=== PATIENT | male | born 1970 | race African-American/Black ===

== ENCOUNTER 2016-08-24 11:02 | Inpatient (IN) | payer OTHER ==
[~2016-08-24] VITALS: Ht 193 cm; Wt 146.5 kg
--- NOTE | ~2016-08-24 | EKG ---
[address] [place] [address] ELECTROCARDIOGRAM REPORT Name: JACE ZHANG Room #: 448-P [facility] M..#: [id number] Admission: 08/24/16 Attend Phys: Suma Maldonado Discharge: Date of : 68 Report #: [id number] THIS REPORT FOR: //name// [facility] ED Test Date: 2016-08-24 Test Time: 12:52:51 Pat Name: JACE ZHANG Department: Room: [facility] Gender: M [employer] Supervisor: rigoberto : 1970 Requested By: Dio Kilgore Order Number: [id number] MD: Fahad Vazquez Measurements Intervals [place] Rate: 88 P: 16 FL: 162 QRS: -29 QRSD: 117 T: -6 QT: 429 QTc: 519 Interpretive Statements Sinus rhythm Atrial premature complex Probable left ventricular hypertrophy No previous ECG available for comparison Electronically Signed On 08-24-2016 15:47:19 ORTHODONTIC TECHNICIAN ASSISTANT by Fahad Vazquez [email or web address] <ELECTRONICALLY SIGNED> By: Fahad Vazquez MD 08/24/16 1547 1252 51 Fahad Vazquez MD /[place]
--- NOTE | ~2016-08-24 | 2DMMODE ---
[place] [address] 2 D/M-MODE ECHOCARDIOGRAM Name: JACE ZHANG Room #: 448-P [facility] [place] M.R.#: [id number] Admission: 08/24/16 Attend Phys: Suma Sherman Discharge: Date of : 68 Date of Service: 08/25/16 0811 Report #: [id number] THIS REPORT FOR: //name// Transthoracic Echocardiography Ordering physician: Suma Maldonado Referring physician: Suma Maldonado Wellness Assistant: LLOYD Coronado Indications/History: SOA. BP: 143 / HR: 86bpm Height: 75in Weight: 323lb 83 Study data: M-mode, complete 2D, complete spectral Doppler, and color Doppler. Location: Echo laboratory. Routine. Image quality was good. 2D measurements Normal Normal LVID ED 36-57 IVS ED 6-11 LVID ES 23-40 LVPW ED 6-11 LA volume index 39ml/m2 16-28 AoRoot diam ED 21-37 LVOT diameter 27mm 18-23 Findings: Left ventricle: The cavity size was at the upper limits of normal. Wall thickness was normal. Systolic function was normal. The estimated ejection fraction was in the range of 50% to 55%. Wall motion was normal. Right ventricle: The cavity size was at the upper limits of normal. Systolic function was normal. Right atrium: The atrium was mildly dilated. Left atrium: The atrium was mildly dilated. Volume index: 39ml/m2 (S). Aortic valve: Structurally normal valve. Trileaflet. Doppler: There was no stenosis. No regurgitation. Mitral valve: Structurally normal valve. Doppler: There was no evidence for stenosis. No regurgitation. [address] [address] 2 D/M-MODE ECHOCARDIOGRAM Name: JACE ZHANG [facility] Room #: [address] [place] [address] [place] M.R.#: [id number] Admission: 08/24/16 Attend Phys: Suma Sherman Discharge: Date of : 68 Date of Service: 08/25/16 0811 Report #: [id number] Tricuspid valve: Structurally normal valve. Doppler: There was no evidence for stenosis. No regurgitation. Pulmonic valve: Structurally normal valve. Doppler: There was no evidence for stenosis. No regurgitation. Pericardium: There was no pericardial effusion. Aorta: Aortic root: The aortic root was normal in size. Pulmonary artery: Pressure could not be reliably determined due to minimal or absent tricuspid insufficiency jet, but pulmonary hypertension was not suggested. Diastolic function: Normal diastolic function. Systemic veins: Inferior vena cava: Not well visualized. Conclusions 1. Left ventricle: Systolic function was normal. The estimated ejection fraction was in the range of 50% to 55%. Wall motion was normal. Normal diastolic function. 2. Aortic valve: Structurally normal valve. Trileaflet. There was no stenosis. No regurgitation. 3. Mitral valve: Structurally normal valve. No regurgitation. 4. Pericardium, extracardiac: There was no pericardial effusion. <ELECTRONICALLY SIGNED> By: Ed Leon MD, [facility] 08/25/16 1008 0811 1008 Ed Leon MD, [facility] /joana
--- NOTE | ~2016-08-24 | EKG ---
[address] [address] ELECTROCARDIOGRAM REPORT Name: JACE ZHANG Room #: 448-P [facility] M..#: [id number] Admission: 08/24/16 Attend Phys: Suma Maldonado Discharge: Date of : 68 Report #: [id number] THIS REPORT FOR: //name// [facility] Test Date: 2016-08-25 Test Time: 07:24:24 Pat Name: JACE ZHANG Department: Room: 448 P Gender: M Allocation Analyst: allen : 1970 Requested By: Suma Maldonado Order Number: [id number] MD: Fahad Vazquez Measurements Intervals [place] Rate: 70 P: 13 [place]: 162 QRS: -26 QRSD: 109 T: 7 QT: 430 QTc: 464 Interpretive Statements Sinus rhythm Left ventricular hypertrophy Compared to ECG 08/24/2016 12:52:51 Atrial premature complex(es) no longer present Electronically Signed On 08-25-2016 8:30:47 MOBILITY DEVELOPER by Fahad Vazquez [email or web address] <ELECTRONICALLY SIGNED> By: Fahad Vazquez MD [id number] Fahad Vazquez MD /[place]
[~2016-08-24 11:02] MED LIST: ZPAK PO
[2016-08-24 11:05] VITALS: BP 127/87
[2016-08-24 11:18] VITALS: BP 142/87
[2016-08-24 12:44] LABS: ABSOLUTE NEUTROPHILS 4.4 thou/uL (1.4-8.2); BASOPHILS 0.6 % (0.0-2.0); EOSINOPHILS 0.2 % (0.0-3.0); HEMATOCRIT 41.7 % (42.0-52.0); HEMOGLOBIN 13.9 gm/dL (14.0-18.0); LYMPHOCYTES 32.5 % (24.0-44.0); MCH 27.8 pg (26.0-34.0); MCHC 33.2 % (28.0-37.0); MCV 83.5 fL (80.0-100.0); MONOCYTES 9.1 % (1.0-8.0); PLATELET COUNT 182 thou/uL (150-400); POLYS 57.6 % (36.0-66.0); RBC 4.99 mil/uL (4.50-6.00); WBC 7.7 thou/uL (4.0-11.0)
[2016-08-24 12:49] LABS: CALCIUM 8.2 mg/dL (8.5-10.1); CREATININE 1.3 mg/dL (0.6-1.3); POTASSIUM 3.3 mmol/L (3.5-5.1)
[2016-08-24 12:50] LABS: MANUAL DIFF NO
[2016-08-24 12:55] LABS: ALBUMIN 3.7 g/dL (3.4-5.0); TOTAL BILIRUBIN 0.5 mg/dL (<0.1-1.0); TOTAL PROTEIN 7.8 g/dL (6.4-8.2)
[2016-08-24 13:33] LABS: MAGNESIUM 1.9 mg/dL (1.8-2.4); PHOSPHORUS 3.3 mg/dL (2.5-4.9); TROPONIN-I < 0.04 ng/mL (<0.04-0.07)
[2016-08-24 13:47] VITALS: BP 120/83
[2016-08-24 13:49] VITALS: BP 123/79
[2016-08-24 14:30] VITALS: BP 123/76
[2016-08-24 21:02] VITALS: BP 134/86
[2016-08-25] VITALS (7 sets, daily range): BP systolic 112–166; BP diastolic 76–99
[2016-08-25 02:10] LABS: GLYCOHEMOGLOBIN (HGB A1C) 5.7 % (4.8-5.6)
[2016-08-25 20:30] LABS: URINE BILIRUBIN NEGATIVE (Negative); URINE BLOOD NEGATIVE (Negative); URINE COLOR YELLOW; URINE GLUCOSE-RANDOM* NEGATIVE (Negative); URINE KETONES NEGATIVE (Negative); URINE LEUKOCYTES-REFLEX NEGATIVE (Negative); URINE PROTEIN (DIPSTICK) 1+ (Negative); URINE SPECIFIC GRAVITY >= 1.030 (1.003-1.035)
[2016-08-25 20:38] LABS: CASTS None Seen /LPF (None Seen); CRYSTALS None Seen /LPF (None Seen); SQUAMOUS None Seen /LPF (0-3); URINE RBC None Seen /HPF (0-2); URINE WBC-REFLEX 0-5 Rare /HPF (0-5)
[2016-08-26 06:04] VITALS: BP 132/75
[2016-08-26] MEDS ORDERED: PREDNISONE 20 M20 MG PO (12:07)
[2016-08-26] MEDS ORDERED: CEFACLOR500 MG PO (12:07)
[2016-08-26 14:54] VITALS: BP 132/75
== END 2016-08-26 15:42 | disposition home or self-care (01) | DRG 193 ==
LOC: ER 11:02 → EROBS 12:52 → 4S 13:51
PROVIDERS: Emergency Medicine; Hospitalist; Internal Medicine; Nurse Practitioner Family
DX: J18.9 Pneumonia, unspecified organism (principal); J96.91 Respiratory failure, unspecified with hypoxia; E86.0 Dehydration; J40 Bronchitis, not specified as acute or chronic; E87.6 Hypokalemia; Z79.899 Other long term (current) drug therapy; Z79.82 Long term (current) use of aspirin; Z82.3 Family history of stroke; Z83.3 Family history of diabetes mellitus; Z82.49 Family history of ischemic heart disease and other diseases of the circulatory system
CPT/HCPCS: 10100